=== PATIENT | female | born 1980 | race Caucasian/White ===

== ENCOUNTER 2023-01-10 10:12 | Emergency (ER) | payer BC, SELFPAY ==
[2023-01-10 10:28] VITALS: BP 138/79; PULSE 87; RESP 16; TEMP 36.8; O2SAT 100
--- NOTE | 2023-01-10 10:34 | ED.URI ---
HPI - URI/Sore Throat General Chief Complaint: Upper Respiratory Infection Stated Complaint: cough sore throat congestion Source: patient and RN notes reviewed History of Present Illness HPI Narrative: 42-year-old female presents to urgent care with complaints of a sore throat, cough, and sinus drainage. Patient states the sore throat started on Saturday night has now progressed to her other symptoms. Patient reports subjective fever last night. Denies any vomiting, diarrhea, chest pain, or shortness of breath. Patient has been taking [id number] cold and flu medication at home. Some parts of this dictation were generated by voice recognition software and may contain typographical and/or grammatical inaccuracies. Related Data Home Medications Medication Instructions Recorded Confirmed levothyroxine 150 mcg tablet mcg 01/10/23 lisinopril 20 mg tablet mg 01/10/23 omeprazole 40 mg capsule,delayed mg 01/10/23 release rimegepant 75 mg disintegrating mg 01/10/23 tablet (Nurtec ODT) simvastatin 20 mg tablet mg 01/10/23 topiramate 100 mg tablet mg 01/10/23 Allergies Allergy/AdvReac Type Severity Reaction Status Date / Time No Known Drug Allergies Allergy Verified 05/06/12 18:12 Review of Systems Review of Systems: CONSTITUTIONAL: Reports here last night EYES: Denies visual changes, redness, or discharge. ENT: Reports intermittent otalgia and constant sore throat CARDIOVASCULAR: Denies chest pain, palpitations, or edema. RESPIRATORY: Reports cough GASTROINTESTINAL: Denies abdominal pain, nausea, vomiting, or diarrhea. GENITOURINARY: Denies dysuria or hematuria. SKIN: Denies rash or itching. MUSCULOSKELETAL: Denies back pain, joint pain, or myalgia. NEUROLOGIC: Denies headache, numbness, or weakness. PMFSH Comments At the time of my signature, I reviewed and agree with the nursing past medical, surgical, social, and family history. There is no relevant family history pertinent to the patient complaint. Exam Narrative: GENERAL: This is a well-nourished, well-developed patient, in no apparent distress. HEAD: normocephalic, atraumatic. EYES: PERRL. Sclera clear/white. Vision is grossly intact. EARS: External ears normal, auditory canals clear and without drainage, TMs normal without perforation. Hearing grossly intact. Bilateral effusions. NOSE: External nose normal with no obvious nasal discharge, nares without redness, no rhinorrhea. THROAT: Mucous membranes moist, posterior pharynx clear. NECK: Reports lymphadenopathy CARDIOVASCULAR: Regular rate and rhythm without murmurs, gallops, or rubs. RESPIRATORY: Clear to auscultation. Breath sounds equal bilaterally. No wheezes, rales, or rhonchi. GASTROINTESTINAL: Abdomen soft, non-tender, nondistended. Bowel sounds are active. No hepato-splenomegaly, or palpable masses. No guarding. SKIN: warm, intact with no suspicious lesions or rash, good texture and turgor. NEURO: awake, alert, and oriented to person, place and time. There were no obvious focal neurologic abnormalities. Course Course Level of Care: Express Care Visit Vital Signs Vital signs: Vital Signs Temperature 98.3 F 01/10/23 10:28 Pulse Rate 87 01/10/23 10:28 Respiratory Rate 16 01/10/23 10:28 Blood Pressure 138/79 01/10/23 10:28 Pulse Oximetry 100 01/10/23 10:28 Oxygen Delivery Room Air 01/10/23 10:28 Temperature 98.3 F 01/10/23 10:28 Pulse Rate 87 01/10/23 10:28 Respiratory Rate 16 01/10/23 10:28 Blood Pressure 138/79 01/10/23 10:28 Pulse Oximetry 100 01/10/23 10:28 Oxygen Delivery Room Air 01/10/23 10:28 Reviewed MDM - URI/Sore Throat MDM Narrative Medical decision making narrative: Rapid strep is negative in the office; however we will send to the lab for confirmation; there is a small percentage chance that it can come back positive; if it is, we will call you in 2-3days; and your prescription will be call in to your pharmacy. However,
== END 2023-01-10 10:47 | disposition home or self-care (01) ==
PROVIDERS: Emergency Provider Nurse Practitioner Family; PCP Internal Medicine
DX: J02.9 Acute pharyngitis, unspecified (principal); J06.9 Acute upper respiratory infection, unspecified; E78.00 Pure hypercholesterolemia, unspecified; I10 Essential (primary) hypertension; K21.9 Gastro-esophageal reflux disease without esophagitis; E03.9 Hypothyroidism, unspecified
CPT/HCPCS: 87081; 87880; 99213; G0463

== ENCOUNTER 2024-08-25 10:13 | Outpatient (CLI) | payer BC, SELFPAY ==
--- NOTE | ~2024-08-25 | MM_ITS ---
EXAMINATION: MM screening rosales BI w jody HISTORY: Screening TECHNIQUE: Craniocaudal and mediolateral oblique 3-D tomosynthesis images were obtained and synthetic 2-D images were generated. CAD analysis was submitted and interpreted. COMPARISON: No prior mammogram is available for comparison at this institution. BREAST PARENCHYMAL COMPOSITION: Not Dense: The breasts are almost entirely fatty. FINDINGS: There is no evidence of suspicious mass, calcification, or architectural distortion to sugg est malignancy in either breast. There has been no suspicious interval change. IMPRESSION: 1. No mammographic evidence of malignancy. 2. Recommend routine screening mammography in one year. BI-RADS Category 1: Negative Reviewed, dictated and finalized at location B.
== END 2024-08-25 10:14 | disposition home or self-care (01) ==
LOC: ANHIMG 10:13
PROVIDERS: PCP Family Medicine; Visit Provider Family Medicine
DX: Z12.31 Encounter for screening mammogram for malignant neoplasm of breast (principal)
CPT/HCPCS: 77063; 77067